=== PATIENT | female | born 1960 | race African-American/Black ===

== ENCOUNTER 2018-02-24 23:55 | Inpatient (IN) | payer MEDICARE, MEDICAID ==
[~2018-02-24] VITALS: Ht 160 cm; Wt 63.1 kg
[~2018-02-24 23:55] MED LIST: QUET100T4 PO
[2018-02-25 00:19] VITALS: BP 154/85
[2018-02-25] MEDS ORDERED: ONDANSETRON ODT 4 MG PO PRN (00:30)
[2018-02-25] MEDS ORDERED: POLYETHYLENE GLYCOL 17 GM PACKET PO PRN (00:30)
[2018-02-25 00:50] LABS: MICROSCOPIC INDICATED
[2018-02-25 00:56] LABS: CULTURE INDICATED? NO
[2018-02-25] MEDS ORDERED: QUETIAPINE 25MG TABLET PO SCH (01:00)
[2018-02-25] MEDS: NICOTINE 14MG/24 HR PATCH.TD24 TD SCH ×2 (01:27→13:29)
[2018-02-25 07:53] VITALS: BP 109/71
[2018-02-25] MEDS: LORazepam 1MG TABLET PO PRN (09:02)
[2018-02-25 12:08] LABS: HCT (SEDRATE) 37.7 % (34.6-47.8)
[2018-02-25 12:27] LABS: CHOL/HDL RATIO 2.5; CHOLESTEROL, TOTAL 176 mg/dL (140-239); FREE T4 (FREE THYROXINE) 0.79 ng/dL (0.76-1.46); HDL CHOL % 40 % (28-40); HDL CHOLESTEROL (DIRECT) 70 mg/dL (40-60); LDL CHOLESTEROL,CALCULATED 86 mg/dL (54-169); LDL/HDL RATIO 1.2 (0.5-3.0); TRIGLYCERIDES 102 mg/dL (50-200); VLDL CHOLESTEROL 20 mg/dL (0-25)
[2018-02-25] MEDS: ACAMPROSATE 333 MG TABLET.DR PO SCH ×2 (15:57→20:27)
[2018-02-25 19:32] VITALS: BP 95/59
[2018-02-25] MEDS: QUETIAPINE 100MG TABLET PO SCH (20:28)
[2018-02-26] MEDS: NICOTINE 14MG/24 HR PATCH.TD24 TD SCH ×2 (00:30→09:08)
[2018-02-26] MEDS: LORazepam 1MG TABLET PO PRN (07:39)
[2018-02-26] MEDS: QUETIAPINE 25MG TABLET PO PRN (07:40)
[2018-02-26 07:46] VITALS: BP 114/77
[2018-02-26] MEDS: ACAMPROSATE 333 MG TABLET.DR PO SCH ×3 (09:08→21:24)
[2018-02-26 20:33] VITALS: BP 120/80
[2018-02-26] MEDS: QUETIAPINE 100MG TABLET PO SCH (21:23)
[2018-02-27] MEDS: NICOTINE 14MG/24 HR PATCH.TD24 TD SCH ×2 (00:52→13:07)
[2018-02-27 07:26] VITALS: BP 128/76
[2018-02-27] MEDS: ACAMPROSATE 333 MG TABLET.DR PO SCH ×3 (08:34→20:45)
[2018-02-27] MEDS: LORazepam 1MG TABLET PO PRN (08:35)
[2018-02-27] MEDS: QUETIAPINE 100MG TABLET PO SCH (20:45)
[2018-02-27 20:54] VITALS: BP 107/74
[2018-02-28] MEDS: NICOTINE 14MG/24 HR PATCH.TD24 TD SCH ×2 (01:03→13:00)
[2018-02-28 08:12] VITALS: BP 121/80
[2018-02-28] MEDS: ACAMPROSATE 333 MG TABLET.DR PO SCH ×3 (09:43→20:20)
[2018-02-28] MEDS: LORazepam 1MG TABLET PO PRN (09:43)
[2018-02-28 19:48] VITALS: BP 114/81
[2018-02-28] MEDS: QUETIAPINE 100MG TABLET PO SCH (20:20)
[2018-03-01] MEDS: NICOTINE 14MG/24 HR PATCH.TD24 TD SCH ×2 (00:30→14:00)
[2018-03-01 08:00] VITALS: BP 115/67
[2018-03-01] MEDS: ACAMPROSATE 333 MG TABLET.DR PO SCH ×3 (09:00→16:25)
[2018-03-01] MEDS: LORazepam 1MG TABLET PO PRN (09:07)
[2018-03-01 19:51] VITALS: BP 116/80
[2018-03-01] MEDS: ACETAMINOPHEN 325 MG TABLET PO PRN (21:10)
[2018-03-01] MEDS: QUETIAPINE 100MG TABLET PO SCH (21:10)
[2018-03-02 08:00] VITALS: BP 114/72
[2018-03-02] MEDS: NICOTINE 14MG/24 HR PATCH.TD24 TD SCH ×2 (08:00→13:00)
[2018-03-02] MEDS: ACAMPROSATE 333 MG TABLET.DR PO SCH ×3 (08:13→21:09)
[2018-03-02] MEDS: LORazepam 1MG TABLET PO PRN (08:38)
[2018-03-02] MEDS: QUETIAPINE 25MG TABLET PO PRN (08:38)
[2018-03-02] MEDS: ACETAMINOPHEN 325 MG TABLET PO PRN ×2 (10:20→15:51)
[2018-03-02] MEDS ORDERED: ZIPRASIDONE 20 MG INJ IM ONE ×2 (11:16→11:30)
[2018-03-02 20:50] VITALS: BP 107/73
[2018-03-02] MEDS ORDERED: QUETIAPINE 100MG TABLET PO SCH (21:00)
[2018-03-03 07:55] VITALS: BP 109/68
[2018-03-03] MEDS: ACAMPROSATE 333 MG TABLET.DR PO SCH ×3 (08:06→19:39)
[2018-03-03] MEDS: ACETAMINOPHEN 325 MG TABLET PO PRN ×2 (08:06→18:35)
[2018-03-03] MEDS: LORazepam 1MG TABLET PO PRN (09:55)
[2018-03-03] MEDS ORDERED: ZIPRASIDONE 20 MG INJ IM ONE ×2 (10:30→19:10)
[2018-03-03] MEDS: NICOTINE 14MG/24 HR PATCH.TD24 TD SCH (15:28)
[2018-03-03] MEDS ORDERED: ZIPRASIDONE 20 MG INJ IM PRN (19:30)
[2018-03-03] MEDS: ZIPRASIDONE 20MG CAPSULE PO SCH (19:39)
[2018-03-03] MEDS: RISPERIDONE 2 MG TABLET PO SCH (19:39)
[2018-03-03 19:53] VITALS: BP 105/72
[2018-03-04 07:48] VITALS: BP 132/85
[2018-03-04] MEDS: ZIPRASIDONE 20MG CAPSULE PO SCH ×2 (08:14→20:49)
[2018-03-04] MEDS: ACAMPROSATE 333 MG TABLET.DR PO SCH ×3 (08:14→20:49)
[2018-03-04] MEDS: RISPERIDONE 2 MG TABLET PO SCH ×2 (08:15→20:50)
[2018-03-04] MEDS: ACETAMINOPHEN 325 MG TABLET PO PRN ×3 (09:48→20:50)
[2018-03-04] MEDS: NICOTINE 14MG/24 HR PATCH.TD24 TD SCH (13:41)
[2018-03-04] MEDS: ORAJEL 7GM TUBE MM PRN ×2 (14:08→20:50)
[2018-03-04 19:40] VITALS: BP 103/68
[2018-03-05 07:39] VITALS: BP 137/80
[2018-03-05] MEDS: ZIPRASIDONE 20MG CAPSULE PO SCH ×2 (08:06→20:45)
[2018-03-05] MEDS: ACAMPROSATE 333 MG TABLET.DR PO SCH ×3 (08:06→20:44)
[2018-03-05] MEDS: RISPERIDONE 2 MG TABLET PO SCH ×2 (08:06→20:48)
[2018-03-05] MEDS: ACETAMINOPHEN 325 MG TABLET PO PRN ×3 (08:07→19:21)
[2018-03-05] MEDS: DOCUSATE 100 MG CAPSULE PO PRN (08:14)
[2018-03-05] MEDS: ORAJEL 7GM TUBE MM PRN ×2 (09:40→18:18)
[2018-03-05] MEDS: NICOTINE 14MG/24 HR PATCH.TD24 TD SCH ×2 (13:51→13:53)
[2018-03-05 19:24] VITALS: BP 121/82
[2018-03-06] MEDS: LORazepam 1MG TABLET PO PRN ×2 (03:46→21:23)
[2018-03-06 07:53] VITALS: BP 125/84
[2018-03-06] MEDS: ACAMPROSATE 333 MG TABLET.DR PO SCH ×3 (08:06→20:12)
[2018-03-06] MEDS: ZIPRASIDONE 20MG CAPSULE PO SCH ×2 (08:06→20:12)
[2018-03-06] MEDS: RISPERIDONE 2 MG TABLET PO SCH ×2 (08:07→20:13)
[2018-03-06] MEDS: ACETAMINOPHEN 325 MG TABLET PO PRN ×3 (08:07→20:14)
[2018-03-06] MEDS: DOCUSATE 100 MG CAPSULE PO PRN (08:18)
[2018-03-06] MEDS: NICOTINE 14MG/24 HR PATCH.TD24 TD SCH (13:34)
[2018-03-06] MEDS: ORAJEL 7GM TUBE MM PRN (18:31)
[2018-03-06 20:37] VITALS: BP 126/84
[2018-03-07 07:50] VITALS: BP 105/64
[2018-03-07] MEDS: ACETAMINOPHEN 325 MG TABLET PO PRN ×2 (08:14→13:49)
[2018-03-07] MEDS: DOCUSATE 100 MG CAPSULE PO PRN (08:14)
[2018-03-07] MEDS: ZIPRASIDONE 20MG CAPSULE PO SCH ×2 (08:14→20:20)
[2018-03-07] MEDS: ACAMPROSATE 333 MG TABLET.DR PO SCH ×3 (08:15→20:19)
[2018-03-07] MEDS: RISPERIDONE 2 MG TABLET PO SCH ×2 (08:15→20:20)
[2018-03-07] MEDS: NICOTINE 14MG/24 HR PATCH.TD24 TD SCH (13:50)
[2018-03-07 21:04] VITALS: BP 119/77
[2018-03-08 07:45] VITALS: BP 112/74
[2018-03-08] MEDS: ACAMPROSATE 333 MG TABLET.DR PO SCH ×3 (08:49→15:47)
[2018-03-08] MEDS: LORazepam 1MG TABLET PO PRN (08:50)
[2018-03-08] MEDS: RISPERIDONE 2 MG TABLET PO SCH (08:50)
[2018-03-08] MEDS: ZIPRASIDONE 20MG CAPSULE PO SCH ×2 (08:50→20:29)
[2018-03-08] MEDS: NICOTINE 14MG/24 HR PATCH.TD24 TD SCH (12:51)
[2018-03-08] MEDS ORDERED: ZIPR20CA2 PO (17:18)
[2018-03-08] MEDS ORDERED: ACAM333T7 PO (17:18)
[2018-03-08] MEDS ORDERED: NICO-486 TD (17:18)
[2018-03-08 19:22] VITALS: BP 107/72
[2018-03-09 07:28] VITALS: BP 106/75
[2018-03-09] MEDS: ACAMPROSATE 333 MG TABLET.DR PO SCH (07:53)
[2018-03-09] MEDS: ZIPRASIDONE 20MG CAPSULE PO SCH (07:54)
[2018-03-09] MEDS: NICOTINE 14MG/24 HR PATCH.TD24 TD SCH (09:14)
== END 2018-03-09 09:30 | disposition home or self-care (01) | DRG 885 ==
LOC: UNDOADMOB 23:58 → 3E 23:58 → OBSVTOIN 02-25 00:07
PROVIDERS: ADMIT Psychiatry & Neurology Psychosomatic Medicine; ATTEND Psychiatry & Neurology Psychosomatic Medicine
DX: F20.0 Paranoid schizophrenia (principal); R45.851 Suicidal ideations; E87.1 Hypo-osmolality and hyponatremia; F32.9 Major depressive disorder, single episode, unspecified; F10.20 Alcohol dependence, uncomplicated; Y90.9 Presence of alcohol in blood, level not specified; F17.210 Nicotine dependence, cigarettes, uncomplicated; Z59.0 Homelessness; K08.89 Other specified disorders of teeth and supporting structures
CPT/HCPCS: 36415; 71045; 80061; 81001; 82140; 82607; 84439; 84443; 84703; 85651; 86592; 93005; J3486; G0378

== ENCOUNTER 2018-03-15 12:40 | Emergency (ER) | payer MEDICARE, MEDICAID ==
[~2018-03-15] VITALS: Ht 160 cm; Wt 62.5 kg
[~2018-03-15 12:40] MED LIST changes: +ACAM333T7 PO; +NICO-486 TD; +ZIPR20CA2 PO
[2018-03-15 13:04] VITALS: BP 130/90
--- NOTE | 2018-03-15 13:14 | NUR ---
THIS IS A 57 YO FEMALE WHO PRESENTS TO THE ER VIA AMBULANCE. PT WAS PICKED UP FROM THE BUS STATION AT [address] [place] [address] DURING A PYSCHOTIC EPISODE AND PT EXPRESSING SI THOUGHTS. PT IS AO X 4. PT HAS PRESSURED SPEECH, FLIGHT OF IDEAS. PT STATES "I'M ALREADY " AND HER PLAN IS TO "DRINK A BUNCH OF BEER". PT STATES SHE HAS NOT HAD MEDICATIONS SINCE TUESDAY AT LEAST. PT ADMITS TO DRINKING BEER TODAY. PT IS COOPERATIVE WITH RN BUT BECOMES AGITATED EASILY. BELONGINGS PLACED IN TWO BAGS AND PUT IN LOCKED LOCKER. GARAGE DOORS DOWN IN ROOM. SITTER AT DOORSIDE.
[2018-03-15 13:19] LABS: MEAN CORPUSCULAR HGB CONC 33.3 g/dL (32.4-35.8); MEAN CORPUSCULAR VOLUME 95.9 fL (80-100); MEAN PLATELET VOLUME 8.9 fL (7.4-10.4); PLATELET COUNT 377 x10^3/uL (130-400); RED BLOOD COUNT 5.01 x10^6/uL (3.82-5.3)
[2018-03-15 13:24] LABS: ALANINE AMINOTRANSFERASE 23 U/L (12-78); ALBUMIN 4.1 g/dL (3.4-5.0); ANION GAP 10 mmol/L (5-15); CALCIUM 9.3 mg/dL (8.5-10.1); CHLORIDE 109 mmol/L (98-107); CREATININE 0.94 mg/dL (0.55-1.02); SALICYLATE LEVEL 5.4 mg/dL (2.8-20.0)
[2018-03-15 13:27] LABS: ALKALINE PHOSPHATASE 75 U/L (45-117); BILIRUBIN,TOTAL 0.2 mg/dL (0.2-1.0)
[2018-03-15 13:31] LABS: BASOPHILS # (AUTO) 0.12 x10^3/uL (0-0.1); BASOPHILS % (AUTO) 1 % (0-1); EOSINOPHILS # (AUTO) 0.12 x10^3/uL (0-0.4); EOSINOPHILS % (AUTO) 1 % (1-7); LYMPHOCYTES # (AUTO) 4.41 x10^3/uL (1-3.4); LYMPHOCYTES % (AUTO) 40 % (22-44); MD SCAN; MONOCYTES # (AUTO) 0.48 x10^3/uL (0.2-0.8); MONOCYTES % (AUTO) 4 % (2-9); NEUTROPHILS # (AUTO) 5.78 x10^3/uL (1.8-6.8); NEUTROPHILS % (AUTO) 53 % (42-75)
[2018-03-15 13:33] LABS: ACETAMINOPHEN < 2 mcg/mL (10-30)
--- NOTE | 2018-03-15 14:28 | NUR ---
RECEIVED REPORT AND ASSUMED PT. CARE. PT.'S ROOM REMAINS SECURED WITH THE SITTER OUTSIDE OF HER ROOM. PT. IS CALM AND COOPERATIVE. PT. WAS GIVEN BLANKETS FOR WARMTH, HAS WATER AND IS AWARE THAT URINE IS NEEDED.
--- NOTE | 2018-03-15 15:10 | NUR ---
SOC SPOKE WITH THE PT. PT. IS A LEGAL 2K. PT. ASKED THE SOC TO KILL HER WITH MEDICATION. PT. IS SCREAMING AT THE SOC DURING THE INTERVIEW.
[2018-03-15] MEDS ORDERED: HALOPERIDOL 5 MG/ML ONE (15:18)
--- NOTE | 2018-03-15 15:28 | NUR ---
PT. IS SCREAMING PROFANITIES AND STATING THAT SHE WANTS US TO KILL HER. PT. WAS MEDICATED ORDERED.
[2018-03-15] MEDS ORDERED: HALOPERIDOL 5 MG/ML IM PRN (15:30)
--- NOTE | 2018-03-15 16:16 | NUR ---
THROUGHPUT RN: [facility], [facility], AND [facility].
--- NOTE | 2018-03-15 16:20 | NUR ---
BREAK RN: SBAR report received from Lyndsay MEDINA. Pt sleeping on gurney, on right side. Sitter outside of room for pt safety.
[2018-03-15 16:35] LABS: AMPHETAMINE SCREEN, URINE Negative (Negative); BARBITURATE SCREEN, URINE Negative (Negative); BENZODIAZEPINE SCREEN, URINE Negative (Negative); CANNABINOID SCREEN, URINE Negative (Negative); COCAINE SCREEN, URINE Negative (Negative); METHADONE SCREEN, URINE Negative (Negative); OPIATE SCREEN, URINE Negative (Negative)
--- NOTE | 2018-03-15 16:37 | NUR ---
BREAK RN: Plan to move pt to different room, report given to Michelle MEDINA.
--- NOTE | 2018-03-15 16:48 | NUR ---
Recieved report from TASK RN Henna. All questions answered. Assuming care of pt. Pt transported on gurney to ED room 41 from ED room 2. Pt states understanding and compliance. Pt alert, oriented to place, situation, and self. Pt cooperative at this time with ED RN. Pt in ED room 41. Room secured for SI precautions. Sitter near doorway in direct line of sight for observation. NADN. No needs expressed at this time. Turned TV on for pt. Pt appreciative. Turned bright overhead lighting off for pt. Pt appreciative.
[2018-03-15] MEDS ORDERED: DOCUSATE 100 MG CAPSULE PO PRN (17:00)
[2018-03-15] MEDS ORDERED: ACETAMINOPHEN 325 MG TABLET PO PRN (17:00)
[2018-03-15] MEDS ORDERED: LORazepam 2 MG/ML, 1ML IM PRN (17:30)
[2018-03-15] MEDS ORDERED: LORazepam 1MG TABLET PO PRN (17:30)
--- NOTE | 2018-03-15 17:34 | NUR ---
Pt recieved dinner tray. Pt appreciative. Pt watching TV and eating. NADN. Sitter near doorway in direct line of sight of pt. No needs requested at this time.
--- NOTE | 2018-03-15 17:46 | NUR ---
CAROL Vivas from [facility] called and requested report. Provided report. All questions answered. CAROL Vivas to call back with further information if [facility] is able to accept pt.
--- NOTE | 2018-03-15 18:16 | NUR ---
TASK RN: NATHALIE Lopez/ [facility] AT [facility] WHO STATES PT DOES NOT HAVE TRAVEL BENEFITS.
--- NOTE | 2018-03-15 18:18 | NUR ---
Pt resting on [facility] watching TV. NADN. No needs requested at this time. Sitter near doorway in direct line of sight for observation.
--- NOTE | 2018-03-15 19:02 | NUR ---
Provided bedside report to CAROL Schmidt. All questions answered. CAROL Schmidt to assume care of pt at this time.
--- NOTE | 2018-03-15 19:04 | NUR ---
BEDSIDE REPORT RECEIVED FROM CAROL DAS. ASSUMED CARE OF PT. PT SLEEPING ON GURNEY. RESPIRATIONS EVEN AND UNLABORED AT THIS TIME. AWAITING TRANSPORT TO [facility] AT THIS TIME. WILL CONTINUE TO MONITOR.
--- NOTE | 2018-03-15 20:09 | NUR ---
Patient/[facility] given discharge instructions and they have confirmed that they understand the instructions. Patient ambulatory with steady gait with EMS crew. Pt transported with 2 bags of belongings.
[2018-03-15] MEDS ORDERED: QUETIAPINE 100MG TABLET PO SCH (21:00)
[2018-03-15] MEDS ORDERED: ZIPRASIDONE 20MG CAPSULE PO SCH (21:00)
== END 2018-03-15 23:39 ==
LOC: ED 15:19 → EDIP 15:20 → UNDOADMOB 15:20 → ED 15:51 → OBSVTOIN 16:58 → INTOOBSV 16:58 → EDIP 20:39 → UNDODISIN 23:38 → ED 23:39
DX: F23 Brief psychotic disorder (principal); Z72.9 Problem related to lifestyle, unspecified
CPT/HCPCS: 36415; 80053; 80307; 80329; 85025; 93005; 96372; 99285; J1630; 99284; G0378; G0480

== ENCOUNTER 2019-06-04 09:01 | Inpatient (IN) | payer MEDICARE, MEDICAID ==
[~2019-06-04] VITALS: Ht 160 cm; Wt 74.6 kg
[~2019-06-04 09:01] MED LIST changes: +RISP2TAB91 PO; +SERT-237 PO/NG
--- NOTE | 2019-06-04 09:19 | NUR ---
[place]IE[place]. REPORT RECEIVED FROM EMS. SI. DENIES HI. OFF MEDS FOR 1 WEEK. HX OF SCHIZOPHRENIA. PT'S AOX4. RESPS EVEN AND UNLABORED. BELONGINGS PUT INTO ONE BAG AND PUT INTO THE LOCKER.
[2019-06-04] MEDS ORDERED: MIRT-34 PO (09:22)
[2019-06-04] MEDS ORDERED: BENZ0.5T35 PO (09:22)
--- NOTE | 2019-06-04 09:30 | NUR ---
PT AWARE OF URINE SAMPLE.
--- NOTE | 2019-06-04 10:01 | NUR ---
LAB AT BEDSIDE. WATER PROVIDED AT THIS TIME.
[2019-06-04 10:12] LABS: MEAN CORPUSCULAR HEMOGLOBIN 32.5 pg (27.0-34.8); MEAN CORPUSCULAR HGB CONC 33.7 g/dL (32.4-35.8); MEAN CORPUSCULAR VOLUME 96.4 fL (80-100); MEAN PLATELET VOLUME 8.5 fL (7.4-10.4); PLATELET COUNT 274 x10^3/uL (130-400); RED BLOOD COUNT 4.17 x10^6/uL (3.82-5.3); RED CELL DISTRIBUTION WIDTH 13.1 % (9.6-15.2)
[2019-06-04 10:21] LABS: ALBUMIN 2.8 g/dL (3.4-5.0); CALCIUM 8.3 mg/dL (8.5-10.1); CHLORIDE 98 mmol/L (98-107); CREATININE 0.77 mg/dL (0.55-1.02); SALICYLATE LEVEL 4.8 mg/dL (2.8-20.0)
[2019-06-04 10:28] LABS: ANION GAP 9 mmol/L (5-15)
[2019-06-04 10:32] LABS: BASOPHILS # (AUTO) 0.05 x10^3/uL (0-0.1); BASOPHILS % (AUTO) 1 % (0-1); EOSINOPHILS # (AUTO) 0.02 x10^3/uL (0-0.4); EOSINOPHILS % (AUTO) 0 % (1-7); LYMPHOCYTES # (AUTO) 2.07 x10^3/uL (1-3.4); LYMPHOCYTES % (AUTO) 29 % (22-44); MD SCAN; MONOCYTES # (AUTO) 0.59 x10^3/uL (0.2-0.8); MONOCYTES % (AUTO) 8 % (2-9); NEUTROPHILS # (AUTO) 4.36 x10^3/uL (1.8-6.8); NEUTROPHILS % (AUTO) 62 % (42-75)
--- NOTE | 2019-06-04 10:34 | NUR ---
K 2.1 per lab. pa notified.
--- NOTE | 2019-06-04 10:39 | NUR ---
pt amb to br with steady gait. urine cup given.
--- NOTE | 2019-06-04 10:43 | NUR ---
ekg done at bedside by emt.
[2019-06-04] MEDS ORDERED: POTASSIUM CHLORIDE 20 MEQ TAB.ER.PRT ONE (10:55)
[2019-06-04] MEDS ORDERED: POTASSIUM CHLORIDE 40 MEQ in SODIUM CHLORIDE 0.9% 500 ML IV ONE (11:00)
[2019-06-04] MEDS ORDERED: SODIUM CHLORIDE FLUSH 10ML SYR IVF ONE (11:00)
[2019-06-04] MEDS ORDERED: POTASSIUM CHLORIDE 20 MEQ TAB.ER.PRT PO ONE (11:00)
[2019-06-04 11:02] LABS: AMPHETAMINE SCREEN, URINE Negative (Negative); BARBITURATE SCREEN, URINE Negative (Negative); BENZODIAZEPINE SCREEN, URINE Negative (Negative); CANNABINOID SCREEN, URINE Negative (Negative); COCAINE SCREEN, URINE Negative (Negative); METHADONE SCREEN, URINE Negative (Negative); OPIATE SCREEN, URINE Negative (Negative)
--- NOTE | 2019-06-04 11:06 | NUR ---
PT MEDICATED PER EMAR. PT TOLERATED WELL.
--- NOTE | 2019-06-04 11:09 | NUR ---
MEAL TRAY ORDERED AT THIS TIME.
--- NOTE | 2019-06-04 11:32 | NUR ---
BUILDING INSULATION INSTALLER AT BEDSIDE AT THIS TIME.
--- NOTE | 2019-06-04 12:08 | NUR ---
POTASSIUM IVF INFUSING WITHOUT DIFFICULTY VITALS UPDATED-WNL PROVIDED WITH LUNCH (PSYCHIATRIC PRECAUTIONS) UP TO RESTROOM-AMBULATED WITHOUT DIFFICULTY PSYCHIATRIC TEAM AT BEDSIDE TO ASSESS
[2019-06-04] MEDS: BENZTROPINE 1 MG TABLET PO SCH (12:30)
[2019-06-04] MEDS: RISPERIDONE 2 MG TABLET PO SCH ×2 (12:30→20:47)
--- NOTE | 2019-06-04 12:38 | NUR ---
MEDICATION ORDERED FROM PHARMACY AT THIS TIME.
--- NOTE | 2019-06-04 12:45 | NUR ---
PT AMB TO BR WITH STEADY GAIT.
--- NOTE | 2019-06-04 12:56 | NUR ---
PT MEDICATED PER EMAR. PT TOLERATED WELL.
[2019-06-04] MEDS ORDERED: RISPERIDONE 2 MG TABLET ONE (13:15)
--- NOTE | 2019-06-04 13:22 | NUR ---
PT MEDICATED PER EMAR. PT TOLERATED WELL.
--- NOTE | 2019-06-04 13:46 | NUR ---
PT MOVED TO ROOM 2. PT IN HOSPITAL BED AT THIS TIME.
--- NOTE | 2019-06-04 13:55 | NUR ---
REPORT GIVEN TO FESTUS MEDINA. ALL QUESTIONS ANSWERED.
[2019-06-04 14:27] VITALS: BP 109/72
[2019-06-04] MEDS ORDERED: MAGNESIUM SULFATE PMX 2GM/50ML 50 ML IV ONE (18:30)
[2019-06-04] MEDS: POTASSIUM CHLORIDE 20 MEQ TAB.ER.PRT PO SCH (18:33)
[2019-06-04 19:52] VITALS: BP 99/64
[2019-06-04] MEDS ORDERED: MIRTAZAPINE 15 MG TABLET PO SCH (21:00)
[2019-06-05 00:30] VITALS: BP 102/68
[2019-06-05] MEDS: POTASSIUM CHLORIDE 20 MEQ TAB.ER.PRT PO SCH (05:13)
[2019-06-05 06:14] LABS: ANION GAP 5 mmol/L (5-15); CALCIUM 8.5 mg/dL (8.5-10.1); CHLORIDE 110 mmol/L (98-107); CREATININE 0.68 mg/dL (0.55-1.02)
[2019-06-05 07:02] VITALS: BP 135/61
[2019-06-05] MEDS: BENZTROPINE 1 MG TABLET PO SCH (09:00)
[2019-06-05] MEDS: RISPERIDONE 2 MG TABLET PO SCH (09:00)
[2019-06-05] MEDS ORDERED: MIRT-34 PO (11:34)
[2019-06-05] MEDS ORDERED: BENZ1TAB61 PO (11:34)
[2019-06-05] MEDS ORDERED: MULT1TAB60 PO (11:34)
[2019-06-05] MEDS ORDERED: RISP2TAB35 PO (11:34)
[2019-06-05] MEDS ORDERED: POTA20PA31 PO (11:34)
[2019-06-05] MEDS ORDERED: POTASSIUM CHLORIDE 10% 40 MEQ/30 ML UDC PO ONE (12:00)
[2019-06-05 13:05] VITALS: BP 123/88
--- NOTE | 2019-06-05 17:02 | NUR ---
PT PERSONAL ITEMS DELIVERED TO 3E
[2019-06-12] MEDS ORDERED: RISP2TAB35 PO (14:06)
[2019-06-12] MEDS ORDERED: CARV3.1212 PO (14:06)
[2019-06-12] MEDS ORDERED: CARB200T4 PO (14:06)
[2019-06-12] MEDS ORDERED: MIRT-34 PO (14:06)
[2019-06-12] MEDS ORDERED: NICO-486 TD (14:06)
== END 2019-06-05 17:17 | DRG 641 ==
LOC: ED 10:29 → EDIP 10:45 → 4WST 14:10
PROVIDERS: ADMIT Internal Medicine; ATTEND Internal Medicine
DX: E87.6 Hypokalemia (principal); F20.0 Paranoid schizophrenia; R45.851 Suicidal ideations; F17.200 Nicotine dependence, unspecified, uncomplicated; F41.1 Generalized anxiety disorder; Z91.14 Patient's other noncompliance with medication regimen
CPT/HCPCS: 36415; 80048; 80307; 82040; 83735; 84132; 85025; 93005; 96374; G0378; J3480; J3475; J7040

== ENCOUNTER 2019-08-15 07:32 | Emergency (ER) | payer MEDICARE, MEDICAID ==
[~2019-08-15] VITALS: Ht 160 cm; Wt 81.8 kg
[~2019-08-15 07:32] MED LIST changes: +BENZ0.5T35 PO; +BENZ1TAB61 PO; +CARB200T4 PO; +CARV3.1212 PO; +MIRT-34 PO; +MULT-449 PO; +POTA20PA31 PO; +RISP2TAB35 PO
--- NOTE | 2019-08-15 07:48 | NUR ---
UNDERWEAR, SOCKS, AND WARM BLANKET PROVIDED.
--- NOTE | 2019-08-15 07:48 | NUR ---
BIB [facility] FOR SI W/ NO SPECIFIC PLAN. STATES SHE CAN'T TAKE CARE OF HERSELF ANYMORE. STATES "I'M DISABLED. I TRIED TO KILL MYSELF BY DRINKING. I DON'T DRINK". NO DETAILED PLAN. PT CALLED 911 AND ASKED THEM FOR THE BEST WAY TO KILL HERSELF. STATES SHE WANTS TO GO TO A MENTAL FACILITY THEN A [facility]. STATES "I DON'T WANT TO SLEEP ON THE STREETS NO MORE". HX SCHIZOPHRENIA, DEPRESSION, ANXIETY. PERSONAL BELONGINGS BAG (1 OF 1) PLACED IN SECURE LOCKER. SITTER REQUESTED FOR ROOM.
[2019-08-15 08:17] LABS: BASOPHILS # (AUTO) 0.04 x10^3/uL (0-0.1); BASOPHILS % (AUTO) 1 % (0-1); EOSINOPHILS # (AUTO) 0.02 x10^3/uL (0-0.4); EOSINOPHILS % (AUTO) 0 % (1-7); LYMPHOCYTES # (AUTO) 2.61 x10^3/uL (1-3.4); LYMPHOCYTES % (AUTO) 34 % (22-44); MD NO; MEAN CORPUSCULAR HEMOGLOBIN 32.5 pg (27.0-34.8); MEAN CORPUSCULAR HGB CONC 33.2 g/dL (32.4-35.8); MEAN CORPUSCULAR VOLUME 97.9 fL (80-100); MEAN PLATELET VOLUME 8.1 fL (7.4-10.4); MONOCYTES # (AUTO) 0.38 x10^3/uL (0.2-0.8); MONOCYTES % (AUTO) 5 % (2-9); NEUTROPHILS # (AUTO) 4.54 x10^3/uL (1.8-6.8); NEUTROPHILS % (AUTO) 60 % (42-75); PLATELET COUNT 294 x10^3/uL (130-400); RED BLOOD COUNT 4.51 x10^6/uL (3.82-5.3); RED CELL DISTRIBUTION WIDTH 15.3 % (9.6-15.2)
[2019-08-15 08:30] LABS: ALBUMIN 3.8 g/dL (3.4-5.0); ANION GAP 10 mmol/L (5-15); CALCIUM 9.1 mg/dL (8.5-10.1); CHLORIDE 98 mmol/L (98-107); CREATININE 0.89 mg/dL (0.55-1.02); SALICYLATE LEVEL 5.1 mg/dL (2.8-20.0)
[2019-08-15 08:34] LABS: ALANINE AMINOTRANSFERASE 20 U/L (12-78); ALKALINE PHOSPHATASE 108 U/L (45-117); BILIRUBIN,TOTAL 0.7 mg/dL (0.2-1.0); TOTAL PROTEIN 8.2 g/dL (6.4-8.2); TROPONIN I < 0.015 ng/mL (0.000-0.045)
--- NOTE | 2019-08-15 08:54 | NUR ---
UA COLLECTED, LABELED, AND WALKED TO LAB.
--- NOTE | 2019-08-15 09:04 | NUR ---
PT HAS NOT TAKEN PRESCRIBED MEDICATIONS IN "A LONG TIME I DON'T EVEN KNOW WHEN".
[2019-08-15 09:13] LABS: MICROSCOPIC NOT IND
[2019-08-15 10:02] LABS: AMPHETAMINE SCREEN, URINE Negative (Negative); BARBITURATE SCREEN, URINE Negative (Negative); BENZODIAZEPINE SCREEN, URINE Negative (Negative); CANNABINOID SCREEN, URINE Negative (Negative); COCAINE SCREEN, URINE Negative (Negative); METHADONE SCREEN, URINE Negative (Negative); OPIATE SCREEN, URINE Negative (Negative)
--- NOTE | 2019-08-15 10:04 | NUR ---
PT PROVIDED W/ SI BREAKFAST TRAY.
--- NOTE | 2019-08-15 10:37 | NUR ---
REPORT GIVEN TO CAROL SOTO.
--- NOTE | 2019-08-15 11:00 | NUR ---
LATE ENTRY FOR 1100: REPORT TAKEN FROM CAROL GONZALEZ. PT SLEEPING IN ROOM, RESPS EVEN AND UNLABORED. SITTER MONITORING FROM [facility] FOR SAFETY.
[2019-08-15] MEDS ORDERED: POTASSIUM CHLORIDE 20 MEQ TAB.ER.PRT PO ONE (11:30)
[2019-08-15] MEDS ORDERED: POTASSIUM CHLORIDE 20 MEQ TAB.ER.PRT ONE (11:31)
--- NOTE | 2019-08-15 11:37 | NUR ---
LATE ENTRY FOR 1137: PT MEDICATED PER EMAR FOR HYPOKALEMIA, ALL MONITORS IN PLACE, PT IS NSR WITH NO ECTOPY NOTED. PT TOLERATED MEDICATION WELL, ASPIRATION PRECAUTIONS IN PLACE. NO S/SX ASPIRATION S/P MANAGING MANAGER. PT IS A&O, RESPS EVEN AND UNLABORED, NEURO INTACT. CALL LIGHT IN REACH. BLANKET PROVIDED. PT IS CALM BUT TEARFUL, MAKING REMARKS ABOUT HOW MUCH SHE DISLIKES HER PLACE OF RESIDENCE. VERBAL SUPPORT PROVIDED. SITTER MONITORING FROM [facility] FOR [facility].
[2019-08-15 11:45] VITALS: BP 135/66
--- NOTE | 2019-08-15 12:26 | NUR ---
PT REPORTS SHE HAS HAD HEADACHE, LEFT EAR ACHE AND SORE THROAT, INTERMITTENT, "FOR A WHILE". PT DENIES OTHER SYMPTOMS. EDMD ALYSON NOTIFIED. EDMD REASSESSED PT. PT DENIES THESE SYMPTOMS AT THIS TIME. PER EDMD, NO ADDITIONAL TESTING REQUIRED AT THIS TIME, MD GIRALDO'D PT TO TRANSFER TO [facility] WHEN BED AVAILABLE. PT A&O, RESPS EVEN AND UNLABORED, NADN. SI MEAL TRAY PROVIDED. SITTER MONITORING FROM [facility] FOR SAFETY.
--- NOTE | 2019-08-15 13:14 | NUR ---
pt eating si lunch meal tray, tolerating well. pt a&o, resps even and unlabored. [facility]. pt awaiting placement on U.
--- NOTE | 2019-08-15 14:07 | NUR ---
report given to behavioral health RN, pt awaiting transport at this time.
== END 2019-08-15 14:33 ==
LOC: ED 08:23
DX: E87.6 Hypokalemia (principal); R45.851 Suicidal ideations; F32.9 Major depressive disorder, single episode, unspecified; R94.31 Abnormal electrocardiogram [ECG] [EKG]; F17.200 Nicotine dependence, unspecified, uncomplicated
CPT/HCPCS: 36415; 71045; 80053; 80307; 81003; 83880; 84484; 85025; 93005; 99285

== ENCOUNTER 2019-08-15 10:49 | Inpatient (IN) | payer MEDICARE, MEDICAID ==
[~2019-08-15] VITALS: Ht 157.5 cm; Wt 78.6 kg
[2019-08-15] MEDS ORDERED: PLEASE ENTER HEIGHT AND WEIGHT MC SCH (17:00)
[2019-08-15 17:54] VITALS: BP 119/67
[2019-08-15] MEDS ORDERED: POLYETHYLENE GLYCOL 17 GM PACKET PO PRN (18:00)
[2019-08-15] MEDS ORDERED: POTASSIUM CHLORIDE 20 MEQ TAB.ER.PRT PO ONE (18:00)
[2019-08-15 19:41] VITALS: BP 141/73
[2019-08-15] MEDS: MIRTAZAPINE 15 MG TABLET PO SCH (20:43)
[2019-08-15] MEDS: CARBAMAZEPINE 200 MG TABLET PO SCH (20:43)
[2019-08-16 07:37] VITALS: BP 107/62
[2019-08-16] MEDS: RISPERIDONE 2 MG TABLET PO SCH (08:30)
[2019-08-16] MEDS: POTASSIUM CHLORIDE 20 MEQ TAB.ER.PRT PO SCH (08:30)
[2019-08-16 13:21] LABS: BASOPHILS # (AUTO) 0.02 x10^3/uL (0-0.1); BASOPHILS % (AUTO) 0 % (0-1); EOSINOPHILS # (AUTO) 0.03 x10^3/uL (0-0.4); EOSINOPHILS % (AUTO) 0 % (1-7); LYMPHOCYTES # (AUTO) 2.65 x10^3/uL (1-3.4); LYMPHOCYTES % (AUTO) 38 % (22-44); MD NO; MEAN CORPUSCULAR HEMOGLOBIN 32.1 pg (27.0-34.8); MEAN CORPUSCULAR HGB CONC 32.5 g/dL (32.4-35.8); MEAN PLATELET VOLUME 7.8 fL (7.4-10.4); MONOCYTES # (AUTO) 0.51 x10^3/uL (0.2-0.8); MONOCYTES % (AUTO) 7 % (2-9); NEUTROPHILS # (AUTO) 3.84 x10^3/uL (1.8-6.8); NEUTROPHILS % (AUTO) 55 % (42-75); PLATELET COUNT 262 x10^3/uL (130-400); RED BLOOD COUNT 4.07 x10^6/uL (3.82-5.3); RED CELL DISTRIBUTION WIDTH 15.9 % (9.6-15.2)
[2019-08-16 13:30] LABS: ANION GAP 7 mmol/L (5-15); CALCIUM 9.2 mg/dL (8.5-10.1); CHLORIDE 108 mmol/L (98-107); CREATININE 0.89 mg/dL (0.55-1.02)
[2019-08-16 13:34] LABS: CHOL/HDL RATIO 3.2; CHOLESTEROL, TOTAL 190 mg/dL (140-239); HDL CHOL % 32 % (28-40); HDL CHOLESTEROL (DIRECT) 60 mg/dL (40-60); LDL CHOLESTEROL,CALCULATED 108 mg/dL (54-169); LDL/HDL RATIO 1.8 (0.5-3.0); TRIGLYCERIDES 112 mg/dL (50-200); VLDL CHOLESTEROL 22 mg/dL (0-25)
[2019-08-16] MEDS ORDERED: POTASSIUM CHLORIDE 20 MEQ TAB.ER.PRT PO ONE (17:30)
[2019-08-16 19:55] VITALS: BP 126/69
[2019-08-16] MEDS: CARBAMAZEPINE 200 MG TABLET PO SCH (20:47)
[2019-08-16] MEDS: MIRTAZAPINE 15 MG TABLET PO SCH (20:47)
[2019-08-17 07:54] VITALS: BP 131/84
[2019-08-17] MEDS: RISPERIDONE 2 MG TABLET PO SCH (09:01)
[2019-08-17] MEDS: POTASSIUM CHLORIDE 20 MEQ TAB.ER.PRT PO SCH (09:01)
[2019-08-17 10:22] LABS: ANION GAP 7 mmol/L (5-15); CALCIUM 9.2 mg/dL (8.5-10.1); CHLORIDE 111 mmol/L (98-107)
[2019-08-17 10:23] LABS: CREATININE 0.74 mg/dL (0.55-1.02)
[2019-08-17] MEDS: NICOTINE 14MG/24 HR PATCH.TD24 TD SCH (10:43)
[2019-08-17 19:51] VITALS: BP 137/67
[2019-08-17] MEDS: ACETAMINOPHEN 325 MG TABLET PO PRN (20:24)
[2019-08-17] MEDS: MIRTAZAPINE 15 MG TABLET PO SCH (20:24)
[2019-08-17] MEDS: CARBAMAZEPINE 200 MG TABLET PO SCH (20:24)
[2019-08-18 02:07] LABS: CHLORIDE,URINE RANDOM 18 mmol/L; POTASSIUM,URINE RANDOM 9 mmol/L; SODIUM,URINE RANDOM 28 mmol/L
[2019-08-18 02:30] LABS: OSMOLALITY,URINE 159 mOsm/kg (500-850)
[2019-08-18 07:22] VITALS: BP 132/83
[2019-08-18] MEDS: RISPERIDONE 2 MG TABLET PO SCH (09:08)
[2019-08-18] MEDS: POTASSIUM CHLORIDE 20 MEQ TAB.ER.PRT PO SCH (09:08)
[2019-08-18] MEDS: NICOTINE 14MG/24 HR PATCH.TD24 TD SCH ×2 (09:09→09:29)
[2019-08-18 19:48] VITALS: BP 121/75
[2019-08-18] MEDS: CARBAMAZEPINE 200 MG TABLET PO SCH (20:43)
[2019-08-18] MEDS: MIRTAZAPINE 15 MG TABLET PO SCH (20:43)
[2019-08-19 05:57] LABS: ANION GAP 4 mmol/L (5-15); CALCIUM 9.5 mg/dL (8.5-10.1); CHLORIDE 113 mmol/L (98-107); CREATININE 0.65 mg/dL (0.55-1.02)
[2019-08-19 07:23] VITALS: BP 113/78
[2019-08-19] MEDS: POTASSIUM CHLORIDE 20 MEQ TAB.ER.PRT PO SCH (09:03)
[2019-08-19] MEDS: RISPERIDONE 2 MG TABLET PO SCH (09:04)
[2019-08-19] MEDS: NICOTINE 14MG/24 HR PATCH.TD24 TD SCH (10:19)
[2019-08-19 19:36] VITALS: BP 134/87
[2019-08-19] MEDS: MIRTAZAPINE 15 MG TABLET PO SCH (20:50)
[2019-08-19] MEDS: ACETAMINOPHEN 325 MG TABLET PO PRN (20:50)
[2019-08-19] MEDS: CARBAMAZEPINE 200 MG TABLET PO SCH (20:50)
[2019-08-20 07:51] VITALS: BP 100/64
[2019-08-20] MEDS: RISPERIDONE 2 MG TABLET PO SCH (08:29)
[2019-08-20] MEDS: POTASSIUM CHLORIDE 20 MEQ TAB.ER.PRT PO SCH (08:29)
[2019-08-20] MEDS: NICOTINE 14MG/24 HR PATCH.TD24 TD SCH (09:00)
[2019-08-20] MEDS: DOCUSATE 100 MG CAPSULE PO PRN ×2 (16:30→20:33)
[2019-08-20] MEDS: ACETAMINOPHEN 325 MG TABLET PO PRN ×2 (18:02→20:33)
[2019-08-20 19:18] VITALS: BP 113/77
[2019-08-20] MEDS: CARBAMAZEPINE 200 MG TABLET PO SCH (20:33)
[2019-08-20] MEDS: MIRTAZAPINE 15 MG TABLET PO SCH (20:33)
[2019-08-21 07:38] VITALS: BP 104/68
[2019-08-21] MEDS: RISPERIDONE 2 MG TABLET PO SCH (09:05)
[2019-08-21] MEDS: POTASSIUM CHLORIDE 20 MEQ TAB.ER.PRT PO SCH (09:05)
[2019-08-21] MEDS: NICOTINE 14MG/24 HR PATCH.TD24 TD SCH (09:06)
[2019-08-21 19:36] VITALS: BP 112/67
[2019-08-21] MEDS: MIRTAZAPINE 15 MG TABLET PO SCH (20:20)
[2019-08-21] MEDS: CARBAMAZEPINE 200 MG TABLET PO SCH (20:20)
[2019-08-21] MEDS: ACETAMINOPHEN 325 MG TABLET PO PRN (20:23)
[2019-08-22 07:46] VITALS: BP 107/72
[2019-08-22] MEDS: NICOTINE 14MG/24 HR PATCH.TD24 TD SCH (09:03)
[2019-08-22] MEDS: ACETAMINOPHEN 325 MG TABLET PO PRN ×3 (09:03→20:34)
[2019-08-22] MEDS: RISPERIDONE 2 MG TABLET PO SCH (09:04)
[2019-08-22] MEDS: LIDODERM 5% PATCH TD SCH (16:01)
[2019-08-22 19:53] VITALS: BP 137/90
[2019-08-22] MEDS: MIRTAZAPINE 15 MG TABLET PO SCH (20:34)
[2019-08-22] MEDS: CARBAMAZEPINE 200 MG TABLET PO SCH (20:38)
[2019-08-23] MEDS: LIDODERM REMOVE PATCH NOTE XX SCH (05:00)
[2019-08-23 07:34] VITALS: BP 107/71
[2019-08-23] MEDS: RISPERIDONE 2 MG TABLET PO SCH (08:59)
[2019-08-23] MEDS: NICOTINE 14MG/24 HR PATCH.TD24 TD SCH (08:59)
[2019-08-23] MEDS: ACETAMINOPHEN 325 MG TABLET PO PRN ×2 (09:00→20:31)
[2019-08-23] MEDS ORDERED: ARTIFICIAL TEARS 15 DROP/ML BOTTLE EACHEYE PRN (09:30)
[2019-08-23] MEDS ORDERED: HEMORRHOIDAL OINT, 28 GM (PREP H) RC PRN (09:30)
[2019-08-23] MEDS ORDERED: SODIUM CHLORIDE NASAL SPRAY 45ML BOTTLE NAS PRN (10:00)
[2019-08-23] MEDS ORDERED: HEMORRHOIDAL OINT, 57 GM (PREP H) RC PRN (16:30)
[2019-08-23] MEDS: LIDODERM 5% PATCH TD SCH (16:43)
[2019-08-23 19:53] VITALS: BP 128/77
[2019-08-23] MEDS: MIRTAZAPINE 15 MG TABLET PO SCH (20:31)
[2019-08-23] MEDS: CARBAMAZEPINE 200 MG TABLET PO SCH (20:32)
[2019-08-24] MEDS: LIDODERM REMOVE PATCH NOTE XX SCH (04:00)
[2019-08-24 07:25] VITALS: BP 123/83
[2019-08-24] MEDS: ACETAMINOPHEN 325 MG TABLET PO PRN ×2 (09:46→20:53)
[2019-08-24] MEDS: RISPERIDONE 2 MG TABLET PO SCH (09:46)
[2019-08-24] MEDS: NICOTINE 14MG/24 HR PATCH.TD24 TD SCH (09:49)
[2019-08-24] MEDS: LIDODERM 5% PATCH TD SCH (16:21)
[2019-08-24 19:22] VITALS: BP 102/68
[2019-08-24] MEDS: CARBAMAZEPINE 200 MG TABLET PO SCH (20:43)
[2019-08-24] MEDS: MIRTAZAPINE 15 MG TABLET PO SCH (20:43)
[2019-08-25 07:29] VITALS: BP 121/76
[2019-08-25] MEDS: LIDODERM REMOVE PATCH NOTE XX SCH (09:00)
[2019-08-25] MEDS: NICOTINE 14MG/24 HR PATCH.TD24 TD SCH (09:13)
[2019-08-25] MEDS: RISPERIDONE 2 MG TABLET PO SCH (09:13)
[2019-08-25] MEDS: DULOXETINE 20 MG CAPSULE.DR PO SCH (09:18)
[2019-08-25] MEDS: LIDODERM 5% PATCH TD SCH (16:00)
[2019-08-25 19:44] VITALS: BP 119/64
[2019-08-25] MEDS: CARBAMAZEPINE 200 MG TABLET PO SCH (20:21)
[2019-08-25] MEDS: MIRTAZAPINE 15 MG TABLET PO SCH (20:21)
[2019-08-25] MEDS: ACETAMINOPHEN 325 MG TABLET PO PRN (20:22)
[2019-08-25] MEDS: DOCUSATE 100 MG CAPSULE PO PRN (20:22)
[2019-08-26 07:35] VITALS: BP 110/83
[2019-08-26] MEDS: DULOXETINE 20 MG CAPSULE.DR PO SCH (08:19)
[2019-08-26] MEDS: RISPERIDONE 2 MG TABLET PO SCH (08:19)
[2019-08-26] MEDS: LIDODERM REMOVE PATCH NOTE XX SCH (08:34)
[2019-08-26] MEDS: NICOTINE 14MG/24 HR PATCH.TD24 TD SCH (08:34)
[2019-08-26] MEDS: ACETAMINOPHEN 325 MG TABLET PO PRN ×2 (09:50→20:56)
[2019-08-26 20:17] VITALS: BP 136/87
[2019-08-26] MEDS: CARBAMAZEPINE 200 MG TABLET PO SCH (20:56)
[2019-08-26] MEDS: DOCUSATE 100 MG CAPSULE PO PRN (20:56)
[2019-08-26] MEDS: MIRTAZAPINE 15 MG TABLET PO SCH (20:57)
[2019-08-26] MEDS: LIDODERM 5% PATCH TD SCH (21:00)
[2019-08-27 07:34] VITALS: BP 98/59
[2019-08-27] MEDS: RISPERIDONE 2 MG TABLET PO SCH (09:23)
[2019-08-27] MEDS: DULOXETINE 20 MG CAPSULE.DR PO SCH (09:24)
[2019-08-27] MEDS: NICOTINE 14MG/24 HR PATCH.TD24 TD SCH (09:28)
[2019-08-27] MEDS: ACETAMINOPHEN 325 MG TABLET PO PRN ×2 (09:31→20:04)
[2019-08-27] MEDS: LIDODERM REMOVE PATCH NOTE XX SCH (09:33)
[2019-08-27 19:02] VITALS: BP 118/68
[2019-08-27] MEDS: MIRTAZAPINE 15 MG TABLET PO SCH (20:04)
[2019-08-27] MEDS: CARBAMAZEPINE 200 MG TABLET PO SCH (20:04)
[2019-08-27] MEDS: LIDODERM 5% PATCH TD SCH (20:08)
[2019-08-28 06:34] VITALS: BP 95/61
[2019-08-28] MEDS: LIDODERM REMOVE PATCH NOTE XX SCH (09:00)
[2019-08-28] MEDS: NICOTINE 14MG/24 HR PATCH.TD24 TD SCH (09:00)
[2019-08-28] MEDS: RISPERIDONE 2 MG TABLET PO SCH (09:00)
[2019-08-28] MEDS: ACETAMINOPHEN 325 MG TABLET PO PRN ×2 (12:07→20:34)
[2019-08-28] MEDS: DULOXETINE 20 MG CAPSULE.DR PO SCH (12:07)
[2019-08-28 19:42] VITALS: BP 125/86
[2019-08-28] MEDS: CARBAMAZEPINE 200 MG TABLET PO SCH (20:33)
[2019-08-28] MEDS: MIRTAZAPINE 15 MG TABLET PO SCH (20:34)
[2019-08-28] MEDS: DOCUSATE 100 MG CAPSULE PO PRN (20:41)
[2019-08-28] MEDS: LIDODERM 5% PATCH TD SCH (20:45)
[2019-08-29 07:00] VITALS: BP 117/75
[2019-08-29] MEDS: LIDODERM REMOVE PATCH NOTE XX SCH (09:00)
[2019-08-29] MEDS: DULOXETINE 20 MG CAPSULE.DR PO SCH (09:21)
[2019-08-29] MEDS: RISPERIDONE 2 MG TABLET PO SCH (09:22)
[2019-08-29] MEDS: NICOTINE 14MG/24 HR PATCH.TD24 TD SCH (09:23)
[2019-08-29] MEDS: ACETAMINOPHEN 325 MG TABLET PO PRN ×2 (09:38→19:55)
[2019-08-29] MEDS: DOCUSATE 100 MG CAPSULE PO PRN (09:39)
[2019-08-29 19:18] VITALS: BP 120/73
[2019-08-29] MEDS: CARBAMAZEPINE 200 MG TABLET PO SCH (19:54)
[2019-08-29] MEDS: MIRTAZAPINE 15 MG TABLET PO SCH (19:55)
[2019-08-29] MEDS: LIDODERM 5% PATCH TD SCH (20:00)
[2019-08-30 07:00] VITALS: BP 102/68
[2019-08-30] MEDS: LIDODERM REMOVE PATCH NOTE XX SCH (09:00)
[2019-08-30] MEDS: ZIPRASIDONE 20MG CAPSULE PO SCH ×2 (09:49→20:25)
[2019-08-30] MEDS: ACETAMINOPHEN 325 MG TABLET PO PRN ×2 (09:50→19:28)
[2019-08-30] MEDS: DULOXETINE 20 MG CAPSULE.DR PO SCH (09:51)
[2019-08-30] MEDS: NICOTINE 14MG/24 HR PATCH.TD24 TD SCH (09:52)
[2019-08-30 19:18] VITALS: BP 114/82
[2019-08-30] MEDS: MIRTAZAPINE 15 MG TABLET PO SCH (20:25)
[2019-08-30] MEDS: CARBAMAZEPINE 200 MG TABLET PO SCH ×2 (20:25→21:00)
[2019-08-30] MEDS: LIDODERM 5% PATCH TD SCH (20:27)
[2019-08-31 07:57] VITALS: BP 111/68
[2019-08-31] MEDS: LIDODERM REMOVE PATCH NOTE XX SCH (09:00)
[2019-08-31] MEDS: ZIPRASIDONE 20MG CAPSULE PO SCH ×2 (09:19→20:21)
[2019-08-31] MEDS: DULOXETINE 20 MG CAPSULE.DR PO SCH (09:19)
[2019-08-31] MEDS: ACETAMINOPHEN 325 MG TABLET PO PRN ×2 (09:20→20:21)
[2019-08-31] MEDS: NICOTINE 14MG/24 HR PATCH.TD24 TD SCH (09:28)
[2019-08-31 19:39] VITALS: BP 135/83
[2019-08-31] MEDS: MIRTAZAPINE 15 MG TABLET PO SCH (20:21)
[2019-08-31] MEDS: CARBAMAZEPINE 200 MG TABLET PO SCH (20:21)
[2019-08-31] MEDS: LIDODERM 5% PATCH TD SCH (21:00)
[2019-09-01 07:45] VITALS: BP 137/60
[2019-09-01] MEDS: ZIPRASIDONE 20MG CAPSULE PO SCH ×2 (08:43→20:25)
[2019-09-01] MEDS: DULOXETINE 20 MG CAPSULE.DR PO SCH (08:43)
[2019-09-01] MEDS: NICOTINE 14MG/24 HR PATCH.TD24 TD SCH (08:46)
[2019-09-01] MEDS: LIDODERM REMOVE PATCH NOTE XX SCH (08:48)
[2019-09-01] MEDS: ACETAMINOPHEN 325 MG TABLET PO PRN ×3 (08:52→20:24)
[2019-09-01 19:36] VITALS: BP 120/70
[2019-09-01] MEDS: CARBAMAZEPINE 200 MG TABLET PO SCH (20:24)
[2019-09-01] MEDS: MIRTAZAPINE 15 MG TABLET PO SCH (20:25)
[2019-09-01] MEDS: LIDODERM 5% PATCH TD SCH (20:27)
[2019-09-02 07:47] VITALS: BP 116/81
[2019-09-02] MEDS: LIDODERM REMOVE PATCH NOTE XX SCH (09:00)
[2019-09-02] MEDS: ZIPRASIDONE 20MG CAPSULE PO SCH ×2 (09:33→20:33)
[2019-09-02] MEDS: DULOXETINE 20 MG CAPSULE.DR PO SCH (09:34)
[2019-09-02] MEDS: NICOTINE 14MG/24 HR PATCH.TD24 TD SCH (09:35)
[2019-09-02] MEDS: ACETAMINOPHEN 325 MG TABLET PO PRN ×2 (09:46→19:30)
[2019-09-02] MEDS: MIRTAZAPINE 15 MG TABLET PO SCH (20:34)
[2019-09-02] MEDS: LIDODERM 5% PATCH TD SCH (21:00)
[2019-09-02] MEDS ORDERED: CARBAMAZEPINE 200 MG TABLET PO SCH (21:00)
[2019-09-03 07:00] VITALS: BP 119/69
[2019-09-03] MEDS: ZIPRASIDONE 20MG CAPSULE PO SCH (09:00)
[2019-09-03] MEDS: DULOXETINE 20 MG CAPSULE.DR PO SCH (09:00)
[2019-09-03] MEDS: NICOTINE 14MG/24 HR PATCH.TD24 TD SCH (09:00)
[2019-09-03] MEDS: LIDODERM REMOVE PATCH NOTE XX SCH (09:00)
[2019-09-03] MEDS: ACETAMINOPHEN 325 MG TABLET PO PRN (16:00)
== END 2019-09-03 16:50 | disposition left against medical advice (07) | DRG 885 ==
LOC: 3E 14:30
PROVIDERS: ADMIT Psychiatry & Neurology Psychosomatic Medicine; ATTEND Psychiatry & Neurology Psychosomatic Medicine
DX: F33.2 Major depressive disorder, recurrent severe without psychotic features (principal); E87.1 Hypo-osmolality and hyponatremia; R45.851 Suicidal ideations; F11.20 Opioid dependence, uncomplicated; F20.0 Paranoid schizophrenia; E87.6 Hypokalemia; F10.20 Alcohol dependence, uncomplicated; F41.9 Anxiety disorder, unspecified; F15.21 Other stimulant dependence, in remission; F17.200 Nicotine dependence, unspecified, uncomplicated; Z53.29 Procedure and treatment not carried out because of patient's decision for other reasons; F60.3 Borderline personality disorder; Z91.14 Patient's other noncompliance with medication regimen; Z81.8 Family history of other mental and behavioral disorders; Z79.899 Other long term (current) drug therapy
CPT/HCPCS: 36415; 71045; 80048; 80053; 80061; 80307; 81003; 82436; 83880; 83930; 83935; 84133; 84300; 84484; 85025; 93005; 99285

== ENCOUNTER 2020-01-17 15:53 | Inpatient (IN) | payer MEDICARE, MEDICAID ==
[~2020-01-17] VITALS: Ht 157.5 cm; Wt 72.8 kg
[2020-01-17] MEDS ORDERED: DOCUSATE 100 MG CAPSULE PO PRN (17:00)
[2020-01-17] MEDS ORDERED: BISACODYL 10 MG SUPP PR PRN (17:00)
[2020-01-17] MEDS ORDERED: POLYETHYLENE GLYCOL 17 GM PACKET PO PRN (17:00)
[2020-01-17] MEDS ORDERED: ONDANSETRON ODT 4 MG PO PRN (17:00)
[2020-01-17] MEDS ORDERED: LIDO700A20 TD (17:18)
[2020-01-17] MEDS ORDERED: LORA10TA75 PO (17:18)
[2020-01-17] MEDS ORDERED: MAGN400O7 PO (17:18)
[2020-01-17] MEDS ORDERED: DIVA500T4 PO (17:18)
[2020-01-17] MEDS ORDERED: LEVO25TA4 PO (17:18)
[2020-01-17] MEDS ORDERED: SENN-204 PO (17:18)
[2020-01-17] MEDS ORDERED: VENL37.52 PO (17:18)
[2020-01-17] MEDS ORDERED: POLY17PO5 PO (17:18)
[2020-01-17] MEDS ORDERED: DEXT1DRO6 OP (17:18)
[2020-01-17] MEDS ORDERED: ACET325C6 PO (17:18)
[2020-01-17] MEDS ORDERED: NICO-587 TD (17:18)
[2020-01-17] MEDS ORDERED: TRAZ50TA66 PO (17:18)
[2020-01-17] MEDS ORDERED: MELA5TAB14 PO (17:18)
[2020-01-17] MEDS ORDERED: DIPH25CA61 PO (17:18)
[2020-01-17] MEDS ORDERED: GUAI600T PO (17:18)
[2020-01-17] MEDS ORDERED: RISP3TAB24 PO (17:18)
[2020-01-17] MEDS ORDERED: CYCL5TAB PO (17:18)
[2020-01-17] MEDS ORDERED: ZIPR60CA2 PO (17:18)
[2020-01-17] MEDS ORDERED: GABA300C PO (17:18)
[2020-01-17] MEDS ORDERED: ZIPRASIDONE 20 MG INJ IM ONE ×2 (18:24→18:30)
[2020-01-17 20:40] VITALS: BP 145/76
[2020-01-17] MEDS ORDERED: TRAZODONE 50MG TABLET PO SCH (21:00)
[2020-01-17] MEDS ORDERED: ZIPRASIDONE 20MG CAPSULE PO SCH (21:00)
[2020-01-17] MEDS ORDERED: DIVALPROEX 500 MG TABLET.DR PO SCH (21:00)
[2020-01-17 23:45] VITALS: BP 145/76
[2020-01-18] MEDS ORDERED: LEVOTHYROXINE 25 MCG TABLET PO SCH (06:00)
[2020-01-18 07:38] VITALS: BP 147/88
[2020-01-18] MEDS: LIDODERM REMOVE PATCH NOTE XX SCH (09:00)
[2020-01-18] MEDS: DIVALPROEX 500 MG TABLET.DR PO SCH ×2 (09:00→15:04)
[2020-01-18] MEDS: VENLAFAXINE 75 MG CAP ER PO SCH ×2 (09:00→15:04)
[2020-01-18] MEDS: ZIPRASIDONE 20MG CAPSULE PO SCH ×2 (09:00→15:03)
[2020-01-18] MEDS ORDERED: RISPERIDONE 1 MG TABLET PO SCH (09:00)
[2020-01-18] MEDS: RISPERIDONE 1 MG TABLET PO SCH ×2 (09:00→15:04)
[2020-01-18] MEDS ORDERED: ZIPRASIDONE 20 MG INJ IM ONE ×2 (11:30)
--- NOTE | 2020-01-18 12:16 | NUR ---
KAI CASTAÑEDA - Fall Risk Medications present and NOT receiving anticoagulants. HIGH FALL RISK MEDS JANINA DR 500 MG BID RISPERDAL 3 MG DAILY TRAZODONE 50 MG HS VENLAFAXINE 150 MG DAILY ZIPRASIDONE 60 MG BID Signed: 01/18/20 at 1217 by Rusty ZURITA
[2020-01-18 13:14] VITALS: BP 117/72
[2020-01-18 13:19] VITALS: BP 119/76
[2020-01-18 14:44] VITALS: BP 121/79
[2020-01-18 19:45] VITALS: BP 118/75
[2020-01-18] MEDS ORDERED: LIDOCAINE/PRILOCAINE CRM W/TEG 5GM TP SCH (21:00)
[2020-01-18] MEDS: LIDODERM 5% PATCH TD SCH (21:00)
[2020-01-18] MEDS ORDERED: DIVALPROEX 500 MG TABLET.DR PO SCH (21:00)
[2020-01-18] MEDS: TRAZODONE 50MG TABLET PO SCH ×2 (21:00→22:53)
[2020-01-19] MEDS: ZIPRASIDONE 20MG CAPSULE PO SCH ×2 (05:46→14:32)
[2020-01-19] MEDS: DIVALPROEX 500 MG TABLET.DR PO SCH ×2 (05:46→14:31)
[2020-01-19 07:19] VITALS: BP 119/80
[2020-01-19] MEDS: LIDODERM REMOVE PATCH NOTE XX SCH (09:00)
[2020-01-19] MEDS: VENLAFAXINE 75 MG CAP ER PO SCH (14:32)
[2020-01-19] MEDS: ACETAMINOPHEN 325 MG TABLET PO PRN (15:16)
[2020-01-19 15:57] VITALS: BP 135/84
[2020-01-19 20:15] VITALS: BP 128/87
[2020-01-19] MEDS: TRAZODONE 50MG TABLET PO SCH (20:17)
[2020-01-19] MEDS: LIDODERM 5% PATCH TD SCH (20:18)
[2020-01-20] MEDS: ZIPRASIDONE 20MG CAPSULE PO SCH ×2 (05:19→17:00)
[2020-01-20] MEDS: DIVALPROEX 500 MG TABLET.DR PO SCH ×2 (05:20→17:00)
[2020-01-20] MEDS: LIDODERM REMOVE PATCH NOTE XX SCH (09:00)
[2020-01-20] MEDS: ACETAMINOPHEN 325 MG TABLET PO PRN (10:12)
[2020-01-20] MEDS: TRAZODONE 50MG TABLET PO SCH (21:00)
[2020-01-20] MEDS: LIDODERM 5% PATCH TD SCH (21:00)
[2020-01-21 07:23] VITALS: BP 117/75
[2020-01-21] MEDS: ZIPRASIDONE 20MG CAPSULE PO SCH ×2 (08:20→21:21)
[2020-01-21] MEDS: DIVALPROEX 500 MG TABLET.DR PO SCH ×2 (08:21→21:21)
[2020-01-21] MEDS: VENLAFAXINE 75 MG CAP ER PO SCH (08:21)
[2020-01-21] MEDS: LIDODERM REMOVE PATCH NOTE XX SCH (09:00)
[2020-01-21] MEDS: LIDODERM 5% PATCH TD SCH (21:22)
[2020-01-21] MEDS: TRAZODONE 50MG TABLET PO SCH (21:22)
[2020-01-22 07:19] VITALS: BP 118/75
[2020-01-22] MEDS: ZIPRASIDONE 20MG CAPSULE PO SCH ×2 (08:42→22:57)
[2020-01-22] MEDS: VENLAFAXINE 75 MG CAP ER PO SCH (08:42)
[2020-01-22] MEDS: DIVALPROEX 500 MG TABLET.DR PO SCH ×2 (08:43→22:57)
[2020-01-22] MEDS: LIDODERM REMOVE PATCH NOTE XX SCH (08:49)
[2020-01-22] MEDS: LIDODERM 5% PATCH TD SCH (22:57)
[2020-01-22] MEDS: TRAZODONE 50MG TABLET PO SCH (22:57)
[2020-01-23] MEDS: LIDODERM REMOVE PATCH NOTE XX SCH (09:00)
[2020-01-23] MEDS: ZIPRASIDONE 20MG CAPSULE PO SCH (10:11)
[2020-01-23] MEDS: VENLAFAXINE 75 MG CAP ER PO SCH (10:11)
[2020-01-23] MEDS: DIVALPROEX 500 MG TABLET.DR PO SCH (10:12)
[2020-01-23] MEDS ORDERED: ZIPR20CA2 PO (11:00)
[2020-01-23] MEDS ORDERED: DIVA-61 PO (11:00)
[2020-01-23] MEDS ORDERED: LIDO700A20 TD (11:00)
[2020-01-23] MEDS ORDERED: TRAZ50TA66 PO (11:00)
[2020-01-23] MEDS ORDERED: VENL75CA6 PO (11:00)
[2020-01-23] MEDS: ACETAMINOPHEN 325 MG TABLET PO PRN (12:22)
== END 2020-01-23 13:00 | disposition home or self-care (01) | DRG 885 ==
LOC: 3E 18:19
PROVIDERS: ADMIT Psychiatry & Neurology Psychosomatic Medicine; ATTEND Psychiatry & Neurology Psychosomatic Medicine
DX: F20.0 Paranoid schizophrenia (principal); F33.9 Major depressive disorder, recurrent, unspecified; F15.20 Other stimulant dependence, uncomplicated; E03.9 Hypothyroidism, unspecified; E87.6 Hypokalemia; F17.200 Nicotine dependence, unspecified, uncomplicated; G47.00 Insomnia, unspecified; F41.9 Anxiety disorder, unspecified; E66.9 Obesity, unspecified; G89.29 Other chronic pain; Z79.899 Other long term (current) drug therapy; Z68.29 Body mass index [BMI] 29.0-29.9, adult
CPT/HCPCS: 93005; J3486

== ENCOUNTER 2020-02-01 11:35 | Emergency (ER) | payer MEDICARE, MEDICAID ==
[~2020-02-01] VITALS: Ht 162.6 cm; Wt 73.3 kg
[~2020-02-01 11:35] MED LIST changes: +ACET325C6 PO; +CYCL5TAB PO; +DEXT1DRO6 OP; +DIPH25CA61 PO; +DIVA-61 PO; +DIVA500T4 PO; +GABA300C PO; +GUAI600T PO; +LEVO25TA4 PO; +LIDO700A20 TD; +LORA10TA75 PO; +MAGN400O7 PO; +MELA5TAB14 PO; +NICO-587 TD; +POLY17PO5 PO; +RISP3TAB24 PO; +SENN-204 PO; +TRAZ50TA66 PO; +VENL37.52 PO; +VENL75CA6 PO; +ZIPR60CA2 PO
[2020-02-01 11:44] VITALS: BP 100/69
--- NOTE | 2020-02-01 11:46 | NUR ---
THIS IS A 59YO F BIB EMS FROM [place] [facility] W/ C/O SI. PT REPORTS SHE WANTS TO DRINK HERSELF TO . PER EMS, PT VERBALLY AGGRESSIVE AND MANIC UPON ARRIVAL. PT STATES SHES IN ED BECAUSE "I'M ". PT SEEN AT [facility] ON 01/30/20. PT REPORTS SHE IS UNABLE TO WALK OR MOVE EXTREMITIES. PT SOAKED IN URINE AND FECES. CLOTHING REMOVED, LOCKED IN SAFE KEEPING. PT CHANGED INTO GOWN, GARAGE DOORS DOWN FOR SAFETY. SITTER REQUESTED FROM MARKET ASSET PROTECTION MANAGER. BREANNE LAMAR. CARMELA BOUCHER AT BEDSIDE FOR ED EVAL.
--- NOTE | 2020-02-01 12:06 | NUR ---
LAB IN ROOM.
[2020-02-01 12:22] LABS: BASOPHILS % (AUTO) 1 % (0-1); EOSINOPHILS % (AUTO) 1 % (1-7); LYMPHOCYTES % (AUTO) 25 % (22-44); MEAN CORPUSCULAR HEMOGLOBIN 33.3 pg (27.0-34.8); MEAN CORPUSCULAR HGB CONC 34.7 g/dL (32.4-35.8); MEAN PLATELET VOLUME 7.7 fL (7.4-10.4); MONOCYTES % (AUTO) 7 % (2-9); NEUTROPHILS % (AUTO) 67 % (42-75); PLATELET COUNT 443 x10^3/uL (130-400); RED BLOOD COUNT 4.07 x10^6/uL (3.82-5.3); RED CELL DISTRIBUTION WIDTH 13.1 % (9.6-15.2)
[2020-02-01 12:25] LABS: MD NO
[2020-02-01 12:35] LABS: ALBUMIN 3.5 g/dL (3.4-5.0); ANION GAP 11 mmol/L (5-15); CALCIUM 9.1 mg/dL (8.5-10.1); CHLORIDE 106 mmol/L (98-107); SALICYLATE LEVEL 4.4 mg/dL (2.8-20.0)
[2020-02-01 12:43] LABS: ALANINE AMINOTRANSFERASE 21 U/L (12-78); ALKALINE PHOSPHATASE 62 U/L (45-117); BILIRUBIN,TOTAL 0.3 mg/dL (0.2-1.0); CREATININE 0.63 mg/dL (0.55-1.02); TOTAL PROTEIN 8.4 g/dL (6.4-8.2)
--- NOTE | 2020-02-01 12:43 | NUR ---
PT HAD ANOTHER EPISODE OF BOWEL AND BLADDER INCONTINENCE. PT ASSISTED TO BEDSIDE COMMODE W/ 2 PERSON ASSIST. SHEETS AND CHUCKS CHANGED. URINE COLLECTED AND SENT TO LAB. PT PROVIDED W/ SAFETY TRAY PER PT REQUEST FOR FOOD. GARAGE DOORS DOWN AND SITTER OUTSIDE ROOM FOR SAFETY.
--- NOTE | 2020-02-01 12:46 | NUR ---
PT STATES "I FEEL , IM SCARED". PT REASSURED. RESP EVEN AND UNLABORED, BREANNE.
[2020-02-01 13:02] LABS: AMPHETAMINE SCREEN, URINE Negative (Negative); BARBITURATE SCREEN, URINE Negative (Negative); BENZODIAZEPINE SCREEN, URINE Negative (Negative); CANNABINOID SCREEN, URINE Negative (Negative); COCAINE SCREEN, URINE Negative (Negative); METHADONE SCREEN, URINE Negative (Negative); OPIATE SCREEN, URINE Negative (Negative)
--- NOTE | 2020-02-01 13:05 | NUR ---
REPORT GIVEN TO LUIS FERNANDO MEDINA, UPDATED ON POC. PT RESTING ON GURNEY W/ SIDE RAILS UPX2, GARAGE DOORS DOWN AND SITTER OUTSIDE ROOM FOR SAFETY. RESP EVEN AND UNLABORED, BREANNE.
--- NOTE | 2020-02-01 13:15 | NUR ---
REPORT RECIEVED FROM KERRY MEDINA. ASSUMED CARE OF PT AT THIS TIME. UPPER LEATHER SORTER DELMAR IN TO EVAL PT. PT TO BE DC'D PER UPPER LEATHER SORTER
--- NOTE | 2020-02-01 14:32 | NUR ---
[facility] HERE TO ANESTHESIOLOGIST ASSISTANT PT. PT YELLING AT STAFF, "YOU DUMB ASS HOES, STUPID ASS BITCH. GET MY CLOTHES ON YOU STUPID BITCH" PT PROVIDED WITH CLEAN CLOTHES FROM [employer] "ITS CAUSE IM BLACK HUH" PT GIVEN ALL BELONGINGS FROM LOCKER INCLUDING SOILED CLOTHING DOUBLE BAGGED
== END 2020-02-01 14:43 | disposition home or self-care (01) ==
LOC: ED 11:51
DX: R45.851 Suicidal ideations (principal); F32.9 Major depressive disorder, single episode, unspecified; F20.9 Schizophrenia, unspecified; E87.6 Hypokalemia; F17.210 Nicotine dependence, cigarettes, uncomplicated
CPT/HCPCS: 36415; 80053; 80299; 80307; 80320; 80329; 84443; 85025; 99284; 99406; G0480

== ENCOUNTER 2020-02-01 17:55 | Emergency (ER) | payer MEDICARE, MEDICAID ==
[~2020-02-01] VITALS: Ht 154.9 cm; Wt 68.0 kg
--- NOTE | 2020-02-01 18:00 | NUR ---
PT RECENTLY SEEN HERE IN ER TODAY FOR SI. MD REA AT BEDSIDE FOR POC. PT VERBALLY AGRESSIVE TOWARDS STAFF.
[2020-02-01 18:24] VITALS: BP 145/89
--- NOTE | 2020-02-01 18:53 | NUR ---
PT CLEARED FOR DC. PT REFUSED TO DC. SECURITY CALLED, [facility] CALLED TO ASSIST W DC. PT WHEELED OUT W LAW ENFORCMENT. PT CALLING STAFF RACIAL SLURS AND INAPPROPIATE LANGUAGE.
== END 2020-02-01 18:58 | disposition home or self-care (01) ==
LOC: ED 18:57
DX: F10.10 Alcohol abuse, uncomplicated (principal); R45.851 Suicidal ideations; F17.210 Nicotine dependence, cigarettes, uncomplicated; Y90.0 Blood alcohol level of less than 20 mg/100 ml
CPT/HCPCS: 99284; 99406

== ENCOUNTER 2020-02-06 16:39 | Emergency (ER) | payer MEDICARE, MEDICAID ==
[~2020-02-06] VITALS: Ht 154.9 cm; Wt 68.0 kg
[2020-02-06 16:54] VITALS: BP 122/86
--- NOTE | 2020-02-06 17:02 | NUR ---
PT BIB [facility] FOR C/O NOT BEING ABLE TO WALK, EMS VISULAIZE PT WALK TO DOOR TO UNLOCK FOR EMS. PT THEN STATES "IM STILL SUICIDAL, I NEED DR Doyle" PT ARRIVES IN HOSPITAL GOWN, "I GO TO THE HOSPITAL EVERY DAY" PT SATURATED IN URINE ON ARRIVAL. PT CLEANSED AND PLACED IN NEW HOSPITAL GOWN. PT IN SECURE RM AT THIS TIME, AWAITING TO BE EVALED BY DELMAR REILLY. COUNTERSINKER MADE AWARE, PT NOT LH AT THIS TIME.
--- NOTE | 2020-02-06 17:25 | NUR ---
CHUTE BUILDER IN TO EVAL PT, PT TO BE DC'D. GIVEN FRESH CLOTHING FROM CLOTHING LOCKER, PT GIVEN CAB VOUCHER, PT ASSISTED IN CAB.
== END 2020-02-06 17:33 ==
LOC: ED 17:20
DX: F25.9 Schizoaffective disorder, unspecified (principal); R45.851 Suicidal ideations
CPT/HCPCS: 99284